=== PATIENT | female | born 1950 | race Caucasian/White ===

== ENCOUNTER → 2017-07-20 | Day surgery (SDC) | payer BC ==
[~2017-07-20] MED LIST: Acetaminophen/HYDROcodone 325-5 MG Tab PO ONE; Bupivacaine 0.25% 30 ML SDV ONE; Dexamethasone 4 MG/ML SDV ONE; Glycopyrrolate 0.2 MG/ML SDV ONE; HYDROmorphone 0.5 MG/0.5 ML Syringe IVPUSH PRN; HYDROmorphone 0.5 MG/0.5 ML Syringe ONE; Lactated Ringers 0 ML ONE; Lactated Ringers 1,000 ML IV SCH; Lidocaine 1%/Sod Bicarbonate in NS 8.4% 1 ML Syringe IDERM PRN; Meperidine PF 50 MG/ML Syringe IVPUSH PRN; Midazolam 1 MG/ML 2 ML SDV ONE; Neostigmine Methylsulfate 10 MG/10 ML MDV ONE; Ondansetron 4 MG/2 ML SDV ONE; Propofol 200 MG/20 ML SDV ONE; Rocuronium 50 MG/5 ML Vial ONE; Sodium Chloride 0.9% 10 ML Syringe FLUSH PRN; ceFAZolin 1 GM Vial ONE; diphenhydrAMINE 50 MG/ML SDV IVPUSH PRN; ePHEDrine 50 MG/ML SDV ONE; fentaNYL 100 MCG/2 ML SDV IVPUSH PRN; fentaNYL 250 MCG/5 ML SDV ONE
--- NOTE | 2017-07-20 07:48 | PCM.PREANE ---
Preanesthetic Assessment - Anesthesia/Transfusion/Family Hx Anesthesia History: Prior Anesthesia Without Reaction Family History of Anesthesia Reaction: No Transfusion History: No Prior Transfusion(s) - Review of Systems General: No Symptoms, Weakness (after chemo), Fatigue Pulmonary: No Symptoms Cardiovascular: No Symptoms Gastrointestinal: No Symptoms, Abdominal Pain (all the time after chemo) Neurological: No Symptoms Other: Reports: Easy Bruising, Neck Pain (swollen from cancer) - Physical Assessment NPO Status Date: 07/19/17 NPO Status Time: 20:30 Pulse: 77 O2 Sat by Pulse Oximetry: 95 Respiratory Rate: 16 Blood Pressure: 149/84 Temperature: 97.9 F Height: 5 ft 1 in Weight: 64.546 kg ASA Class: 3 Mental Status: Alert & Oriented x3 Airway Class: Mallampati = 2 Dentition: Reports: Dentures (top ) Thyro-Mental Finger Breadths: 3 Mouth Opening Finger Breadths: 3 ROM/Head Extension: Full Lungs: Clear to Auscultation, Normal Respiratory Effort Cardiovascular: Regular Rate, Regular Rhythm - Lab Values: Laboratory Last Values MRSA (PCR) Negative 07/18/17 09:00 - Allergies Allergies/Adverse Reactions: Allergies Allergy/AdvReac Type Severity Reaction Status Date / Time pineapple Allergy Mouth Sores Verified 07/19/17 12:50 Penicillins AdvReac Numbness Verified 07/19/17 12:50 - Blood Blood Available: No - Acknowledgements Anesthesia Type Planned: General Anesthesia Pt an Appropriate Candidate for the Planned Anesthesia: Yes Alternatives and Risks of Anesthesia Discussed w Pt/Guardian: Yes Pt/Guardian Understands and Agrees with Anesthesia Plan: Yes PreAnesthesia Questionnaire HEENT History: Reports: Impaired Vision, Other (See Below) Other HEENT History: has upper denture, glasses Cardiovascular History: Reports: High Cholesterol Respiratory History: Reports: Bronchitis, Recurrent, Pneumonia, Recurrent, Other (See Below) Other Respiratory History: cough Gastrointestinal History: Reports: GERD 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: Musculoskeletal History: Reports: Other (See Below) Other Musculoskeletal History: neck spasms Neurological History: Reports: Headaches, Chronic (resolved after acupuncture), Other (See Below) Other Neuro History: cerviclagia Psychiatric History: Reports: Anxiety Endocrine/Metabolic History: Reports: Other (See Below) Other Endocrine/Metabolic History: cerviclagia Hematologic History: Reports: None Immunologic History: Reports: None Oncologic (Cancer) History: Reports: Ovarian Dermatologic History: Reports: None - Past Surgical History Head Surgeries/Procedures: Reports: None HEENT Surgical History: Reports: Tonsillectomy Cardiovascular Surgical History: Reports: None Respiratory Surgical History: Reports: None GI Surgical History: Reports: None Female Surgical History: Reports: Breast Reduction, Section, Hysterectomy, Oophorectomy, Tubal Ligation Male Surgical History: Reports: None Endocrine Surgical History: Reports: None Neurological Surgical History: Reports: None Musculoskeletal Surgical History: Reports: Other (See Below) Other Musculoskeletal Surgeries/Procedures:: foot surgery Oncologic Surgical History: Reports: None Dermatological Surgical History: Reports: None - SUBSTANCE USE Smoking Status *Q: Former Smoker Tobacco Use Within Last Twelve Months: No Second Hand Smoke Exposure: No Days Per Week of Alcohol Use: 1 (1-2 ruby per week) Recreational Drug Use History: No - HOME MEDS Home Medications: Home Meds Ca Carbonate/Vitamin D3/Vit K [Calcium + D Soft Chewable Tab] 1 tab PO DAILY 02/25 [History] Cyclobenzaprine [Flexeril] 5 mg PO BEDTIME PRN 07/19/17 [History] Escitalopram Oxalate 20 mg PO DAILY 07/19/17 [History] Gabapentin [Neurontin] 100 mg PO TID 07/19/17 [History] Omeprazole 40 mg PO DAILY 07/19/17 [History] Simvastatin 40 mg PO DAILY 07/19/17 [History] amLODIPine Besylate [Amlodipine Besylate] 5 mg PO DAILY 07/19/17 [History] Acetaminophen/HYDROcodone [[place] 325-5 MG] 1 - 2 tab PO Q6H PRN #30 tablet 07/20 [Rx] Enoxaparin Sodium [Lovenox] 40 mg SQ DAILY #14 ml 07/20/17 [Rx] - CURRENT (IN HOUSE) MEDS Current Meds: Current Medications Lactated Ringer's (Ringers, Lactated) 1,000 mls @ 125 mls/hr IV ASDIRECTED TAMIKO Stop: 07/20/17 23:00 Lidocaine/Sodium Bicarbonate (Buffered Lidocaine 1% In Ns 8.4%) 0.25 ml IDERM ONETIME PRN PRN Reason: Prior to IV Start Stop: 07/20/17 18:00 Sodium Chloride (Saline Flush) 10 ml FLUSH ASDIRECTED PRN PRN Reason: Keep Vein Open Stop: 07/20/17 18:00 Discontinued Medications Bupivacaine HCl (Marcaine 0.25%) Confirm Administered Dose 30 ml .ROUTE .STK- MED ONE Stop: 07/20/17 07:30 Cefazolin Sodium (Ancef) Confirm Administered Dose 2 gm .ROUTE .STK-MED ONE Stop: 07/20/17 07:40 Dexamethasone (Dexamethasone) Confirm Administered Dose 4 mg .ROUTE .STK-MED ONE Stop: 07/20/17 07:40 Fentanyl (Sublimaze) Confirm Administered Dose 250 mcg .ROUTE .STK-MED ONE Stop: 07/20/17 07:41 Lactated Ringer's (Ringers, Lactated) Confirm Administered Dose 1,000 mls @ as directed .ROUTE .STK-MED ONE Stop: 07/20/17 07:40 Midazolam HCl (Versed 1 Mg/Ml) Confirm Administered Dose 2 mg .ROUTE .STK-MED ONE Stop: 07/20/17 07:40 Ondansetron HCl (Zofran) Confirm Administered Dose 4 mg .ROUTE .STK-MED ONE Stop: 07/20/17 07:40 Propofol (Diprivan 20 Ml) Confirm Administered Dose 200 mg .ROUTE .STK-MED ONE Stop: 07/20/17 07:40 Rocuronium Superior (Zemuron) Confirm Administered Dose 50 mg .ROUTE .STK-MED ONE Stop: 07/20/17 07:40
--- NOTE | 2017-07-20 09:53 | PCM.POSTAN ---
POST ANESTHESIA ASSESSMENT - MENTAL STATUS Mental Status: Alert, Oriented - VITAL SIGNS Pulse Rate: 119 SaO2: 96 Resp Rate: 12 Blood Pressure: 162/82 Temperature: 36.6 C - RESPIRATORY Respiratory Status: Respiratory Rate WNL, Airway Patent, O2 Saturation Stable - CARDIOVASCULAR CV Status: Blood Pressure Stable, Elevated Pulse Rate - GASTROINTESTINAL GI Status: No Symptoms - PAIN Pain Score: 0 - POST OP HYDRATION Hydration Status: Adequate & Stable
--- NOTE | 2017-07-20 12:24 | PCM48HPAN ---
Post Anesthesia Note - EVALUATION WITHIN 48HRS OF ANESTHETIC Vital Signs in Normal Range: Yes Patient Participated in Evaluation: Yes Respiratory Function Stable: Yes Airway Patent: Yes Cardiovascular Function Stable: Yes Hydration Status Stable: Yes Pain Control Satisfactory: Yes Nausea and Vomiting Control Satisfactory: Yes
--- NOTE | 2017-07-25 06:55 | PCM.OPNOTE ---
- General Post-Op/Procedure Note Date of Surgery/Procedure: 07/20/17 Operative Procedure(s): right achilles tendon irrigation and debridement Pre Op Diagnosis: right achilles tendon pain Post-Op Diagnosis: Same Anesthesia Technique: General ET Tube, Local Primary Surgeon: Roderick Callahan Anesthesia Provider: Ngozi No Intake Nurse: Alessandra Valera EBL in mLs: 5 Complications: None Condition: Good
--- NOTE | 2017-07-25 07:33 | OR ---
DATE OF OPERATION: 07/20/2017 SURGEON: Roderick Callahan MD OPERATION PERFORMED: Right Achilles tendon irrigation and debridement. PREOPERATIVE DIAGNOSIS: Right Achilles tendon pain. POSTOPERATIVE DIAGNOSIS: Right Achilles tendon pain. ANESTHESIA: General endotracheal intubation with local. ANESTHESIA PROVIDER: Raisa Anton. FRONT MAKER: Alessandra Valera PA-C. ESTIMATED BLOOD LOSS: 5 mL. COMPLICATIONS: None. CONDITION: Stable. DESCRIPTION OF PROCEDURE: The patient was identified in the preop holding area where proper site was marked and identified by the surgeon. The patient was taken back to the operating theater where after adequate anesthesia, the patient was placed in a prone position and the pads were placed beneath her chest. All bony prominences were well padded. The patient's neck was brought into neutral position. Right lower extremity was then had a nonsterile tourniquet applied and was then sterilely prepped and draped in the usual sterile fashion. OR time-out was performed. The patient received appropriate antibiotics. At this time, right lower extremity was exsanguinated. Tourniquet was insufflated to 300 mmHg. At this time, the patient's previous incision was utilized. This was taken down to the Achilles tendon full-thickness. At this time, the Achilles tendon was identified. Deep cultures were then taken at this time. There was noted to be a tape that was wrapped around the Achilles tendon and through it in multiple areas along with FiberWire. The tape areas did show significant irritation in the skin and superficially in the clinic and preop where these areas came close to the subcutaneous tissues. At this time, this tape was removed along with any excess FiberWire as the patient's Achilles tendon showed significant healing with no signs of needing this at this time. At this time, this tape was then debrided out along with the excess FiberWire and we did debride roughly 4 cm2 of other excess scar tissue from around the Achilles tendon at this time. Once it was found to be debrided back and all the tape was resected from around the Achilles tendon, 3 L of normal saline were irrigated through the wound. A 3-0 Vicryl was used subcutaneously and 4-0 nylon was used for the skin. The patient was placed in sterile soft dressing and a Cam boot and sent to the PACU in stable condition. MMODAL /[id number] MTDD
== END | disposition home or self-care (01) ==
LOC: JD.SDS 07:23
PROVIDERS: ATTEND Orthopaedic Surgery
DX: M76.61 Achilles tendinitis, right leg (principal); I10 Essential (primary) hypertension; F41.9 Anxiety disorder, unspecified; K21.9 Gastro-esophageal reflux disease without esophagitis; Z87.891 Personal history of nicotine dependence
CPT/HCPCS: 11043; 87075; 87077; 87186; 87205; 87641; J0690; J1100; J1170; J2250; J2405; J2710; J3010; J3490; J7120; 00400; J2704

== ENCOUNTER 2017-10-26 06:28 | Day surgery (SDC) | payer BC ==
[~2017-10-26 06:28] MED LIST changes: -Acetaminophen/HYDROcodone 325-5 MG Tab PO ONE; -Bupivacaine 0.25% 30 ML SDV ONE; -Dexamethasone 4 MG/ML SDV ONE; -Glycopyrrolate 0.2 MG/ML SDV ONE; -HYDROmorphone 0.5 MG/0.5 ML Syringe IVPUSH PRN; -HYDROmorphone 0.5 MG/0.5 ML Syringe ONE; -Lactated Ringers 0 ML ONE; -Meperidine PF 50 MG/ML Syringe IVPUSH PRN; -Midazolam 1 MG/ML 2 ML SDV ONE; -Neostigmine Methylsulfate 10 MG/10 ML MDV ONE; -Ondansetron 4 MG/2 ML SDV ONE; -Propofol 200 MG/20 ML SDV ONE; -Rocuronium 50 MG/5 ML Vial ONE; -ceFAZolin 1 GM Vial ONE; -diphenhydrAMINE 50 MG/ML SDV IVPUSH PRN; -ePHEDrine 50 MG/ML SDV ONE; -fentaNYL 100 MCG/2 ML SDV IVPUSH PRN; -fentaNYL 250 MCG/5 ML SDV ONE
[2017-10-26] MEDS ORDERED: fentaNYL 100 MCG/2 ML SDV ONE (06:45)
[2017-10-26] MEDS ORDERED: Propofol 200 MG/20 ML SDV ONE ×2 (06:45→06:49)
[2017-10-26] MEDS ORDERED: Ketamine 500 mg/10 ML MDV ONE (06:45)
[2017-10-26] MEDS ORDERED: Midazolam 1 MG/ML 2 ML SDV ONE (06:45)
[2017-10-26] MEDS ORDERED: Lidocaine 1% 4 ML ONE (06:55)
[2017-10-26] MEDS ORDERED: Ondansetron 4 MG/2 ML SDV ONE (06:56)
[2017-10-26] MEDS ORDERED: Bupivacaine 0.25% 30 ML SDV ONE (07:14)
--- NOTE | 2017-10-26 07:29 | PCM.PREANE ---
Preanesthetic Assessment - Anesthesia/Transfusion/Family Hx Anesthesia History: Prior Anesthesia Without Reaction Family History of Anesthesia Reaction: No Transfusion History: No Prior Transfusion(s) - Review of Systems General: Weakness (after chemo treatments), Fatigue Pulmonary: No Symptoms Cardiovascular: No Symptoms Gastrointestinal: No Symptoms Neurological: No Symptoms Other: Reports: Easy Bruising, Neck Pain (swollen ) - Physical Assessment NPO Status Date: 10/25/17 NPO Status Time: 18:30 Pulse: 82 O2 Sat by Pulse Oximetry: 94 Respiratory Rate: 14 Blood Pressure: 148/79 Temperature: 37.1 C Vital Signs: Last Vital Signs Temp 37.1 C 10/26/17 06:30 Pulse 82 10/26/17 06:30 Resp 14 10/26/17 06:30 BP 148/79 H 10/26/17 06:30 Pulse Ox ASA Class: 3 Mental Status: Alert & Oriented x3 Airway Class: Mallampati = 2 Dentition: Reports: Dentures Thyro-Mental Finger Breadths: 3 Mouth Opening Finger Breadths: 3 ROM/Head Extension: Full Lungs: Clear to Auscultation, Normal Respiratory Effort Cardiovascular: Regular Rate, Regular Rhythm - Lab Values: Laboratory Last Values MRSA (PCR) Negative 10/25/17 12:32 - Allergies Allergies/Adverse Reactions: Allergies Allergy/AdvReac Type Severity Reaction Status Date / Time Penicillins AdvReac Numbness Verified 10/25/17 15:06 pineapple AdvReac Mouth Sores Verified 10/25/17 15:06 - Acknowledgements Anesthesia Type Planned: Regional Block (Per Dr. Callahan. Ankle block. ), MAC Pt an Appropriate Candidate for the Planned Anesthesia: Yes Alternatives and Risks of Anesthesia Discussed w Pt/Guardian: Yes Pt/Guardian Understands and Agrees with Anesthesia Plan: Yes Additional Comments: Aminata is currently receiving chemotherapy for her ovarian cancer. Dr. Callahan is aware that Aminata has a low platelet count of 59,000. He feels the procedure cannot wait and will risk further infection. Both Dr. Callahan and Aminata wish to proceed today. 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: Musculoskeletal History: Reports: Other (See Below) Other Musculoskeletal History: neck spasms Neurological History: Reports: Headaches, Chronic, Other (See Below) Other Neuro History: cerviclagia Psychiatric History: Reports: Anxiety Endocrine/Metabolic History: Reports: Other (See Below) Other Endocrine/Metabolic History: cerviclagia Hematologic History: Reports: None Immunologic History: Reports: None Oncologic (Cancer) History: Reports: Ovarian Dermatologic History: Reports: None - Past Surgical History Head Surgeries/Procedures: Reports: None HEENT Surgical History: Reports: Tonsillectomy Cardiovascular Surgical History: Reports: None Respiratory Surgical History: Reports: None GI Surgical History: Reports: None Female Surgical History: Reports: Breast Reduction, Section, Hysterectomy, Oophorectomy, Tubal Ligation Male Surgical History: Reports: None Endocrine Surgical History: Reports: None Neurological Surgical History: Reports: None Musculoskeletal Surgical History: Reports: Other (See Below) Other Musculoskeletal Surgeries/Procedures:: foot surgery Oncologic Surgical History: Reports: None Dermatological Surgical History: Reports: None - SUBSTANCE USE Smoking Status *Q: Never Smoker Recreational Drug Use History: No - HOME MEDS Home Medications: Home Meds Ca Carbonate/Vitamin D3/Vit K [Calcium + D Soft Chewable Tab] 1 tab PO DAILY 02/25 [History] Cyclobenzaprine [Flexeril] 5 mg PO BEDTIME PRN 07/19/17 [History] Gabapentin [Neurontin] 100 mg PO TID 07/19/17 [History] Omeprazole 40 mg PO DAILY 07/19/17 [History] amLODIPine Besylate [Amlodipine Besylate] 5 mg PO DAILY 07/19/17 [History] Atrac-Tain Cream 1 dose TP ASDIRECTED PRN 10/25/17 [History] Acetaminophen/HYDROcodone [[place] 325-5 MG] 1 - 2 tab PO Q6H PRN #40 tablet 10/26 [Rx] - CURRENT (IN HOUSE) MEDS Current Meds: Current Medications Lactated Ringer's (Ringers, Lactated) 1,000 mls @ 125 mls/hr IV ASDIRECTED TAMIKO Stop: 10/26/17 23:00 Lidocaine/Sodium Bicarbonate (Buffered Lidocaine 1% In Ns 8.4%) 0.25 ml IDERM ONETIME PRN PRN Reason: Prior to IV Start Stop: 10/26/17 18:00 Sodium Chloride (Saline Flush) 10 ml FLUSH ASDIRECTED PRN PRN Reason: Keep Vein Open Stop: 10/26/17 18:00 Discontinued Medications Bupivacaine HCl (Marcaine 0.25%) Confirm Administered Dose 30 ml .ROUTE .STK- MED ONE Stop: 10/26/17 07:15 Fentanyl (Sublimaze) Confirm Administered Dose 100 mcg .ROUTE .STK-MED ONE Stop: 10/26/17 06:46 Lidocaine HCl (Xylocaine-Mpf 1%) Confirm Administered Dose 4 mls @ as directed .ROUTE .STK-MED ONE Stop: 10/26/17 06:56 Ketamine HCl (Ketalar) Confirm Administered Dose 500 mg .ROUTE .STK-MED ONE Stop: 10/26/17 06:46 Midazolam HCl (Versed 1 Mg/Ml) Confirm Administered Dose 2 mg .ROUTE .STK-MED ONE Stop: 10/26/17 06:46 Ondansetron HCl (Zofran) Confirm Administered Dose 4 mg .ROUTE .STK-MED ONE Stop: 10/26/17 06:57 Propofol (Diprivan 20 Ml) Confirm Administered Dose 200 mg .ROUTE .STK-MED ONE Stop: 10/26/17 06:46 Propofol (Diprivan 20 Ml) Confirm Administered Dose 200 mg .ROUTE .STK-MED ONE Stop: 10/26/17 06:50
[2017-10-26] MEDS ORDERED: ceFAZolin 1 GM Vial ONE (07:47)
--- NOTE | 2017-10-26 08:38 | PCM48HPAN ---
Post Anesthesia Note - EVALUATION WITHIN 48HRS OF ANESTHETIC Vital Signs in Normal Range: Yes Patient Participated in Evaluation: Yes Respiratory Function Stable: Yes Airway Patent: Yes Cardiovascular Function Stable: Yes Hydration Status Stable: Yes Pain Control Satisfactory: Yes Nausea and Vomiting Control Satisfactory: Yes Mental Status Recovered: Yes
[2017-10-26] MEDS ORDERED: Acetaminophen/HYDROcodone 325-5 MG Tab PO ONE (09:46)
--- NOTE | 2017-11-01 09:25 | PCM.OPNOTE ---
- General Post-Op/Procedure Note Date of Surgery/Procedure: 10/26/17 Operative Procedure(s): irrigation and debridement of right achilles 4 cm with application of wound vac Pre Op Diagnosis: infection of achilles region Post-Op Diagnosis: Same Anesthesia Technique: Local, MAC Primary Surgeon: Roderick Callahan Anesthesia Provider: Ngozi No Pick Up Worker: Alessandra Valera EBL in mLs: 10 Complications: None Condition: Good
--- NOTE | 2017-11-01 09:51 | OR ---
DATE OF OPERATION: 10/26/2017 SURGEON: Roderick Callahan MD OPERATION PERFORMED: Irrigation and debridement, right Achilles wound 4 cm with application of wound VAC. PREOPERATIVE DIAGNOSIS: Infection of Achilles region. POSTOPERATIVE DIAGNOSIS: Infection of Achilles region. ANESTHESIA: Local with MAC. ANESTHESIA PROVIDER: Beverly Anton. AUTOMOBILE SEAT COVER INSTALLER: Alessandra Valera PA-C ESTIMATED BLOOD LOSS: 10 mL. COMPLICATIONS: None. CONDITION: Stable. DESCRIPTION OF PROCEDURE: The patient was identified in the preoperative holding area. Proper site was marked and identified by the surgeon. The patient was taken back to the operating theater, where after adequate anesthesia, the patient's right lower extremity was sterilely prepped and draped in the usual sterile fashion using Betadine prep. At this time, OR time-out was performed. The patient did not receive antibiotics until after cultures were taken. At this time, there was noted to be an open area of the distal portion of the incision and midportion of previous incision from her Achilles tendon repair and then irrigation and debridement from previous. At this time, 15 blade was used to open this up down to the Achilles tendon. There was noted to be a large third space region in this region but there was no ernestina purulence, but there was a lot fluid. At this time, cultures were taken of both tissue and swabs for anaerobic and aerobic cultures at this time. The 4 square centimeter was debrided with the use of a curette and a rongeur of all devitalized tissue. The skin was also debrided at this time near the open areas of drainage. Once this was completed, 6 L of normal saline was irrigated through the wound. A 3-0 nylon simple suture was used for closure of the skin. At this time, a wound VAC was then applied to the incisional region for an incisional VAC noted to the Achilles region. At this time, the patient had a sterile soft dressing applied and was sent to PACU in stable condition. The patient tolerated the procedure well and will follow up with physical therapy for wound treatment. DONNA /[id number]
== END 2017-10-26 10:30 | disposition home or self-care (01) ==
LOC: JD.SDS 06:28
PROVIDERS: ATTEND Orthopaedic Surgery
DX: T81.4XXA Infection following a procedure, initial encounter (principal); M65.18 Other infective (teno)synovitis, other site; I10 Essential (primary) hypertension; E78.00 Pure hypercholesterolemia, unspecified; F41.9 Anxiety disorder, unspecified; K21.9 Gastro-esophageal reflux disease without esophagitis; Z87.891 Personal history of nicotine dependence; Z88.0 Allergy status to penicillin; Z91.018 Allergy to other foods; Z79.899 Other long term (current) drug therapy
CPT/HCPCS: 11043; 87075; 87076; 87077; 87181; 87184; 87186; 87205; 87641; A9270; J0690; J2250; J2405; J2704; J3010; J3490; J7120; 01480; J2001

== ENCOUNTER 2017-12-14 09:55 | Day surgery (SDC) | payer BC ==
[~2017-12-14 09:55] MED LIST changes: +Lidocaine 1% 4 ML ONE; +Midazolam 1 MG/ML 2 ML SDV ONE; +Propofol 200 MG/20 ML SDV ONE; +ceFAZolin 1 GM Vial ONE; +ePHEDrine/Normal Saline 25 MG/5 ML Syringe ONE; +fentaNYL 100 MCG/2 ML SDV ONE
--- NOTE | 2017-12-14 11:19 | PCM.PREANE ---
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 - Review of Systems General: No Symptoms Pulmonary: Cough (patient denies acute bronchitis just a chronic dry cough ) Cardiovascular: Other (HTN, Hyperlipidemia) Gastrointestinal: Other (GERD) Neurological: Headache Other: Reports: Depression, Anxiety - Physical Assessment NPO Status Date: 12/13/17 NPO Status Time: 19:00 O2 Sat by Pulse Oximetry: 98 Respiratory Rate: 16 Vital Signs: Last Vital Signs Temp 36.2 C 12/14/17 10:05 Pulse 58 L 12/14/17 10:05 Resp 16 12/14/17 10:05 BP 183/82 H 12/14/17 10:05 Pulse Ox 98 12/14/17 10:05 Height: 1.55 m Weight: 58.06 kg ASA Class: 3 Mental Status: Alert & Oriented x3 Airway Class: Mallampati = 3 Dentition: Reports: Dentures (upper ), Implants (lower teeth ) Thyro-Mental Finger Breadths: 3 ROM/Head Extension: Full Lungs: Clear to Auscultation, Normal Respiratory Effort Cardiovascular: Regular Rate, Regular Rhythm - Lab Values: Laboratory Last Values MRSA (PCR) Negative 12/12/17 12:46 - Allergies Allergies/Adverse Reactions: Allergies Allergy/AdvReac Type Severity Reaction Status Date / Time Penicillins AdvReac Numbness Verified 12/13/17 14:02 pineapple AdvReac Mouth Sores Verified 12/13/17 14:02 - Blood Blood Available: No Product(s) Available: None - Anesthesia Plan Pre-Op Medication Ordered: None Beta Carla: Carvedilol Med Last Dose Date: 12/13/17 Med Last Dose Time: 07:00 - Acknowledgements Anesthesia Type Planned: MAC Pt an Appropriate Candidate for the Planned Anesthesia: Yes Alternatives and Risks of Anesthesia Discussed w Pt/Guardian: Yes Pt/Guardian Understands and Agrees with Anesthesia Plan: Yes PreAnesthesia Questionnaire HEENT History: Reports: Impaired Vision, Other (See Below) Other HEENT History: has upper denture, glasses Cardiovascular History: Reports: High Cholesterol, Hypertension Respiratory History: Reports: Bronchitis, Recurrent, Pneumonia, Recurrent, Other (See Below) Other Respiratory History: cough Gastrointestinal History: Reports: GERD Genitourinary History: Reports: UTI, Recurrent 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: Musculoskeletal History: Reports: Other (See Below) Other Musculoskeletal History: neck spasms Neurological History: Reports: Headaches, Chronic, Other (See Below) Other Neuro History: cerviclagia Psychiatric History: Reports: None, Anxiety Endocrine/Metabolic History: Reports: Other (See Below) Other Endocrine/Metabolic History: cerviclagia Hematologic History: Reports: None Immunologic History: Reports: None Oncologic (Cancer) History: Reports: Ovarian Dermatologic History: Reports: None - Past Surgical History Head Surgeries/Procedures: Reports: None HEENT Surgical History: Reports: Tonsillectomy Cardiovascular Surgical History: Reports: None Respiratory Surgical History: Reports: None GI Surgical History: Reports: None, Colonoscopy Female Surgical History: Reports: Breast Implant, Breast Reduction, Section, Hysterectomy, Oophorectomy, Tubal Ligation Male Surgical History: Reports: None Endocrine Surgical History: Reports: None Neurological Surgical History: Reports: None Musculoskeletal Surgical History: Reports: Other (See Below) Other Musculoskeletal Surgeries/Procedures:: foot surgery Oncologic Surgical History: Reports: None Dermatological Surgical History: Reports: None - SUBSTANCE USE Smoking Status *Q: Former Smoker Recreational Drug Use History: No - HOME MEDS Home Medications: Home Meds Gabapentin [Neurontin] 100 mg PO TID 07/19/17 [History] Omeprazole 40 mg PO DAILY 07/19/17 [History] amLODIPine Besylate [Amlodipine Besylate] 5 mg PO DAILY 07/19/17 [History] Escitalopram Oxalate 20 mg PO DAILY 12/13/17 [History] Zinc 50 mg PO DAILY 12/13/17 [History] Acetaminophen/HYDROcodone [[place] 325-5 MG] 1 - 2 tab PO Q6H PRN #30 tablet 12/14 [Rx] Aspirin 325 mg PO DAILY #40 tab 12/14/17 [Rx] - CURRENT (IN HOUSE) MEDS Current Meds: Current Medications Lactated Ringer's (Ringers, Lactated) 1,000 mls @ 125 mls/hr IV ASDIRECTED TMAIKO Stop: 12/14/17 23:00 Last Admin: 12/14/17 10:25 Dose: 125 mls/hr Lidocaine/Sodium Bicarbonate (Buffered Lidocaine 1% In Ns 8.4%) 0.25 ml IDERM ONETIME PRN PRN Reason: Prior to IV Start Stop: 12/14/17 18:00 Last Admin: 12/14/17 10:25 Dose: 0.25 ml Sodium Chloride (Saline Flush) 10 ml FLUSH ASDIRECTED PRN PRN Reason: Keep Vein Open Stop: 12/14/17 18:00 Discontinued Medications Bupivacaine HCl (Sensorcaine-Mpf 0.25%) Confirm Administered Dose 20 ml .ROUTE .STK-MED ONE Stop: 12/14/17 10:50 Cefazolin Sodium (Ancef) Confirm Administered Dose 2 gm .ROUTE .STK-MED ONE Stop: 12/14/17 09:11 Ephedrine Sulfate (Ephedrine In Ns) Confirm Administered Dose 25 mg .ROUTE .STK- MED ONE Stop: 12/14/17 09:20 Fentanyl (Sublimaze) Confirm Administered Dose 100 mcg .ROUTE .STK-MED ONE Stop: 12/14/17 09:09 Lidocaine HCl (Xylocaine-Mpf 1%) Confirm Administered Dose 4 mls @ as directed .ROUTE .STK-MED ONE Stop: 12/14/17 09:09 Lidocaine HCl (Xylocaine 1%) Confirm Administered Dose 50 ml .ROUTE .STK-MED ONE Stop: 12/14/17 10:50 Midazolam HCl (Versed 1 Mg/Ml) Confirm Administered Dose 2 mg .ROUTE .STK-MED ONE Stop: 12/14/17 09:10 Propofol (Diprivan 20 Ml) Confirm Administered Dose 200 mg .ROUTE .STK-MED ONE Stop: 12/14/17 09:09
[2017-12-14] MEDS: Bupivacaine 0.25% 10 ML SDV ONE ×2 (11:29→11:56)
[2017-12-14] MEDS: Lidocaine 1% 50 ML MDV ONE ×2 (11:29→11:56)
--- NOTE | 2017-12-14 12:28 | PCM48HPAN ---
Post Anesthesia Note - EVALUATION WITHIN 48HRS OF ANESTHETIC Vital Signs in Normal Range: Yes Patient Participated in Evaluation: Yes Respiratory Function Stable: Yes Airway Patent: Yes Cardiovascular Function Stable: Yes Hydration Status Stable: Yes Pain Control Satisfactory: Yes Nausea and Vomiting Control Satisfactory: Yes Mental Status Recovered: Yes Pulse Rate: 62 SaO2: 93 Resp Rate: 16 Temperature: 97.4 F Blood Pressure: 177/74
[2017-12-14] MEDS ORDERED: Acetaminophen/HYDROcodone 325-5 MG Tab PO SCH (13:17)
--- NOTE | 2017-12-21 06:51 | PCM.OPNOTE ---
- General Post-Op/Procedure Note Date of Surgery/Procedure: 12/14/17 Operative Procedure(s): irrigation and debridement or right achilles tendon wound Pre Op Diagnosis: right achilles tendon wound Post-Op Diagnosis: Same Anesthesia Technique: Local, MAC Primary Surgeon: Roderick Callahan Anesthesia Provider: Sherry HUDDLESTON in mLs: 5 Complications: None Condition: Good
--- NOTE | 2017-12-25 07:54 | OR ---
DATE OF OPERATION: 12/14/2017 SURGEON: Roderick Callahan MD OPERATION PERFORMED: Irrigation and debridement of right Achilles tendon wound. PREOPERATIVE DIAGNOSIS: Right Achilles tendon wound. POSTOPERATIVE DIAGNOSIS: Right Achilles tendon wound. ANESTHESIA: Local MAC. ANESTHESIA PROVIDER: Sherry White CRNA. ANIMAL LABORATORY HELPER: None. ESTIMATED BLOOD LOSS: 5 mL. COMPLICATIONS: None. CONDITION: Stable. DESCRIPTION OF PROCEDURE: The patient was identified in the preop holding area where proper site was marked and identified by the surgeon. The patient was taken back to the operating theater where after adequate anesthesia, the patient's right lower extremity was sterilely prepped and draped in the usual sterile fashion. OR time-out was performed. The patient received 2 g of IV Ancef. Right lower extremity was then anesthetized using 0.25% Marcaine without epinephrine and 1% lidocaine without epinephrine around the wound. The 1.5 cm x 5 mm wound was then debrided using curette. There was no significant tunneling noted. At this time, a liter of saline was irrigated through the wound and then nylon horizontal mattress sutures were used for closure of the wound and then simple sutures over the top making sure it was watertight. At this time, it was found to be adequately closed with no signs of infection, and an incisional VAC was placed over the top at this time. The patient at this time tolerated the procedure well and was sent to the PACU in stable condition. MMODAL /[id number]
== END 2017-12-14 14:30 | disposition home or self-care (01) ==
LOC: JD.SDS 09:55
PROVIDERS: ATTEND Orthopaedic Surgery
DX: S86.091A Other specified injury of right Achilles tendon, initial encounter (principal); T81.89XA Other complications of procedures, not elsewhere classified, initial encounter; I10 Essential (primary) hypertension; E78.5 Hyperlipidemia, unspecified; J20.9 Acute bronchitis, unspecified; F41.9 Anxiety disorder, unspecified; K21.9 Gastro-esophageal reflux disease without esophagitis; F32.9 Major depressive disorder, single episode, unspecified; Z87.891 Personal history of nicotine dependence; Z79.82 Long term (current) use of aspirin; Z79.899 Other long term (current) drug therapy; Z88.0 Allergy status to penicillin; Z91.018 Allergy to other foods; X58.XXXA Exposure to other specified factors, initial encounter
CPT/HCPCS: 11043; 87641; A9270; J0690; J2250; J2704; J3010; J3490; J7050; J7120; 01470; J2001

== ENCOUNTER 2018-06-29 11:02 | Emergency (ER) | payer BC ==
[2018-06-29] MEDS ORDERED: Sodium Chloride 0.9% 10 ML Syringe FLUSH PRN (11:38)
--- NOTE | 2018-06-29 12:33 | EDM.PDOC ---
ED HPI GENERAL MEDICAL PROBLEM - General Chief Complaint: Abdominal Pain Stated Complaint: FLUID BUILD UP CANCER PT Time Seen by Provider: 06/29/18 11:08 Source of Information: Reports: Patient, RN Notes Reviewed - History of Present Illness INITIAL COMMENTS - FREE TEXT/NARRATIVE: 68-year-old female comes in with worsening abdominal distention, shortness of breath. She does have history of ovarian cancer first diagnosed many years ago and then became recurrent about 3 years ago. She has been receiving chemotherapy of various types are the last 3 or 4 years and currently receiving her therapy at cancer Center [facility] [place]. She has been going there once a month for evaluation and treatment. She did first need abdominal paracentesis the end of April about 2 months ago and then had a second or centesis done just a couple of weeks ago prior to coming back home. Now she feels like the fluid is building back up again about as bad as it was 2 weeks ago. Any more short of breath, especially when walking. No chest pain at this time. No major abdominal discomfort. She's been eating and drinking satisfactorily. No recent fever or chills. Abdominal Pain Score (Numeric/FACES): 5 - Related Data Allergies Allergy/AdvReac Type Severity Reaction Status Date / Time Penicillins AdvReac Numbness Verified 06/29/18 11:10 pineapple AdvReac Mouth Sores Verified 06/29/18 11:10 Home Meds: Home Meds Gabapentin [Neurontin] 100 mg PO TID 07/19/17 [History] Omeprazole 40 mg PO DAILY 07/19/17 [History] amLODIPine Besylate [Amlodipine Besylate] 10 mg PO DAILY 07/19/17 [History] Escitalopram Oxalate 20 mg PO DAILY 12/13/17 [History] Zinc 30 mg PO DAILY 12/13/17 [History] Acetaminophen [Non-Aspirin Extra Strength] 1 tab PO ASDIRECTED 03/12/18 [History ] Calcium Carbonate/Vitamin D3 [Calcium 600-Vit D3 800 Tab] 2 tab PO BID 03/12/18 [History] Dexamethasone 4 mg PO ASDIRECTED PRN 03/12/18 [History] Docusate Sodium [Colace] 100 mg PO DAILY PRN 03/12/18 [History] Fexofenadine [Kayleigh] 180 mg PO DAILY 03/12/18 [History] Ondansetron [Zofran ODT] 4 mg PO Q6H PRN #15 tab.dis 03/12/18 [Rx] Pantoprazole [ProTONIX] 40 mg PO DAILY 03/12/18 [History] Ubidecarenone [COQ-10] 100 mg PO DAILY 03/12/18 [History] Vitamin B Complex [B Complex] 2 tab PO DAILY 03/12/18 [History] cloNIDine [Catapres] 0.2 mg TOP ASDIRECTED 06/29/18 [History] Past Medical History HEENT History: Reports: Impaired Vision, Other (See Below) Other HEENT History: has upper denture, glasses Cardiovascular History: Reports: High Cholesterol, Hypertension Respiratory History: Reports: Bronchitis, Recurrent, Pneumonia, Recurrent, Other (See Below) Other Respiratory History: cough Gastrointestinal History: Reports: GERD Genitourinary History: Reports: UTI, Recurrent DIRECTOR OF OUTSIDE SALES History: Reports: Other DIRECTOR OF [employer] SALES History: ovarian cancer Musculoskeletal History: Reports: Other (See Below) Other Musculoskeletal History: neck spasms Neurological History: Reports: Headaches, Chronic, Other (See Below) Other Neuro History: cerviclagia Psychiatric History: Reports: None, Anxiety Endocrine/Metabolic History: Reports: Other (See Below) Other Endocrine/Metabolic History: cerviclagia Hematologic History: Reports: None Immunologic History: Reports: None Oncologic (Cancer) History: Reports: Ovarian Dermatologic History: Reports: None - Past Surgical History Head Surgeries/Procedures: Reports: None HEENT Surgical History: Reports: Tonsillectomy Cardiovascular Surgical History: Reports: None Respiratory Surgical History: Reports: None GI Surgical History: Reports: None, Colonoscopy Female Surgical History: Reports: Breast Implant, Breast Reduction, Section, Hysterectomy, Oophorectomy, Tubal Ligation Endocrine Surgical History: Reports: None Neurological Surgical History: Reports: None Musculoskeletal Surgical History: Reports: Other (See Below) Other Musculoskeletal Surgeries/Procedures:: foot surgery Oncologic Surgical History: Reports: None Dermatological Surgical History: Reports: None Social & Family History - Family History Family Medical History: Noncontributory - Tobacco Use Smoking Status *Q: Never Smoker - Caffeine Use Caffeine Use: Reports: Coffee - Recreational Drug Use Recreational Drug Use: No ED ROS GENERAL - Review of Systems Review Of Systems: See Below Constitutional: Denies: Fever, Chills HEENT: Reports: No Symptoms Respiratory: Reports: Shortness of Breath. Denies: Cough Cardiovascular: Denies: Chest Pain Endocrine: Reports: Fatigue GI/Abdominal: Reports: Other (Worsening abdominal distention). Denies: Abdominal Pain, Nausea, Vomiting Neurological: Reports: No Symptoms ED EXAM, GI/ABD - Physical Exam Exam: See Below General Appearance: Alert, No Apparent Distress Throat/Mouth: Normal Inspection Neck: Supple Respiratory/Chest: No Respiratory Distress, Lungs Clear, Normal Breath Sounds Cardiovascular: Regular Rate, Rhythm GI/Abdominal Exam: Distended (Moderate, compatible with ascites). No: Guarding , Tender Extremities: Pedal Edema. No: Leg Pain, Increased Warmth, Redness Neurological: Alert, Oriented, No Motor/Sensory Deficits Skin Exam: Warm, Dry, Normal Color Course - Vital Signs Last Recorded V/S: Last Vital Signs Temp 97.8 F 06/29/18 11:07 Pulse 88 06/29/18 11:07 Resp 16 06/29/18 11:07 BP 171/91 H 06/29/18 11:07 Pulse Ox 88 L 06/29/18 11:07 - Orders/Labs/Meds Orders: Active Orders 24 hr Category Date Time Status Peripheral IV Care [RC] . DIRECTED Care 06/29/18 11:39 Active CULTURE BODY FLUID + SMEAR [RM] Stat Lab 06/29/18 14:00 Ordered Peripheral IV Insertion Adult [OM.PC] Stat Oth 06/29/18 11:39 Ordered Labs: Laboratory Tests 06/29/18 06/29/18 06/29/18 Range/Units 11:50 11:50 14:00 WBC 4.34 (3.98-10.04) K/mm3 RBC 3.01 L (3.98-5.22) M/mm3 Hgb 8.8 L (11.2-15.7) gm/L Hct 29.0 L (34.1-44.9) % MCV 96.3 H (79.4-94.8) fl MCH 29.2 (25.6-32.2) pg MCHC 30.3 L (32.2-35.5) g/dl RDW Std Deviation 64.0 H (36.4-46.3) fL Plt Count 150 L (182-369) K/mm3 MPV 9.3 L (9.4-12.3) fl Neut % (Auto) 83.0 H (34.0-71.1) % Lymph % (Auto) 6.9 L (19.3-51.7) % Sutton % (Auto) 7.1 (4.7-12.5) % Eos % (Auto) 2.5 (0.7-5.8) Baso % (Auto) 0.5 (0.1-1.2) % Neut # (Auto) 3.60 (1.56-6.13) K/mm3 Lymph # (Auto) 0.30 L (1.18-3.74) K/mm3 Sutton # (Auto) 0.31 (0.24-0.36) K/mm3 Eos # (Auto) 0.11 (0.04-0.36) K/mm3 Baso # (Auto) 0.02 (0.01-0.08) K/mm3 Manual Slide Review Abnormal smear Sodium 141 (136-145) mEq/L Potassium 3.5 (3.5-5.1) mEq/L Chloride 108 H (98-107) mEq/L Carbon Dioxide 23 (21-32) mEq/L Anion Gap 13.5 (5-15) BUN 28 H (7-18) mg/dL Creatinine 2.0 H (0.55-1.02) mg/dL Est Cr Clr Drug Dosing 19.75 mL/min Estimated GFR (MDRD) 25 (>60) mL/min BUN/Creatinine Ratio 14.0 (14-18) Glucose 94 (80-115) mg/dL Calcium 9.0 (8.5-10.1) mg/dL Total Bilirubin 0.5 (0.2-1.0) mg/dL AST 22 (15-37) U/L ALT 14 (14-59) U/L Alkaline Phosphatase 87 (46-116) U/L Total Protein 6.1 L (6.4-8.2) g/dl Albumin 3.0 L (3.4-5.0) g/dl Globulin 3.1 gm/dL Albumin/Globulin Ratio 1.0 (1-2) Body Fluid Site Abdomen aspirate Fluid Type Peritoneal fluid Fluid Volume 18 ML Fluid Color Red Fluid Appearance Bloody Fluid WBC 0.18 L (0.20-0.60) k/mm*3 Fluid RBC 0.348 H (0.00-0.010) 10*6/uL Fluid Diff Comment Not Reportable Fluid Seg Neutrophils 7.0 (0-25) % Fluid Lymphocytes 1.0 (0-78) % Fluid Monocytes 14.0 (0-71) % Fl Polymorphonucl Cell Not Reportable Fld Meso/Macro/Monocyte 78 Fluid LDH 130 U/L Meds: Medications Discontinued Medications Generic Name Dose Route Start Last Admin Trade Name Freq PRN Reason Stop Dose Admin Sodium Chloride 10 ml 06/29/18 11:38 06/29/18 11:59 Saline Flush FLUSH 10 ml ASDIRECTED PRN Administration Keep Vein Open - Re-Assessments/Exams Free Text/Narrative Re-Assessment/Exam: 06/29/18 15:38 I discussed with our surgeon aws solution architect, she can do the tap but does not do US guided paracentisis. I have talked to Dr Hernández, General Surgeon [facility] who did willingly and kindly come in and tapped off about 3 Liters of fluid. Departure - Departure Time of Disposition: 14:38 Disposition: Home, Self-Care 01 Condition: Fair Clinical Impression: Ascites Qualifiers: Ascites type: other type Qualified Code(s): R18.8 - Other ascites - Discharge Information Instructions: Ascites Referrals: Pearl Colón MD [Primary Care Provider] - Forms: ED Department Discharge Additional Instructions: Continue current medications, follow-up cancer Center in 1-2 weeks as planned. Return to ED as needed if symptoms worsening in any way. - My Orders Last 24 Hours: My Active Orders 06/29/18 11:39 Peripheral IV Care [RC] . DIRECTED Peripheral IV Insertion Adult [OM.PC] Stat 06/29/18 14:00 CULTURE BODY FLUID + SMEAR [RM] Stat - Assessment/Plan Last 24 Hours: My Active Orders 06/29/18 11:39 Peripheral IV Care [RC] . DIRECTED Peripheral IV Insertion Adult [OM.PC] Stat 06/29/18 14:00 CULTURE BODY FLUID + SMEAR [RM] Stat
--- NOTE | 2018-06-29 13:28 | CR ---
Chest: Portable view of the chest was obtained. Comparison: Prior chest x-ray of 10/25/17. Small right sided pleural effusion is seen. Mild right basilar atelectasis is noted. Left lung base also show slight atelectasis. Heart size at the upper limits of normal. Tortuous thoracic aorta is seen. Infusion port seen entering from the left side. Pulmonary vessels are felt to be minimally congested. Impression: 1. Small right-sided pleural effusion with slight pulmonary vascular congestion. 2. Mild bibasilar atelectasis. 3. Other incidental findings. Diagnostic code #3
--- NOTE | 2018-06-29 14:17 | PCM.OPNOTE ---
- General Post-Op/Procedure Note Date of Surgery/Procedure: 06/29/18 Operative Procedure(s): abdominal para centhesis Findings: three litters removed blood tinged ascitic fluid Pre Op Diagnosis: malignant ascities Post-Op Diagnosis: Same Anesthesia Technique: Local Primary Surgeon: Evangelista Hernández EBL in mLs: 0 Condition: Good
--- NOTE | 2018-07-02 06:05 | PROC ---
DATE OF OPERATION: 06/29/2018 SURGEON: Evangelista Hernández MD PREOPERATIVE DIAGNOSIS: Malignant ascites. POSTOPERATIVE DIAGNOSIS: Malignant ascites. PROCEDURE: Abdominal paracentesis, 3 L, under ultrasound guidance. FINDINGS: Blood-tinged ascitic fluid. ANESTHESIA: Procedure done under local anesthetic. DESCRIPTION OF PROCEDURE: The patient was seen in the exam room in the emergency room. An ultrasound was done showing the most efficacious spot on the abdomen to perform the paracentesis. This was marked in the right lower quadrant, and this area was prepped with chlorhexidine, alcohol prep, and draped off in a sterile fashion. Skin was anesthetized with 1% Xylocaine, and a small exploratory 22-gauge needle was inserted, and a bloody tap was obtained of blood-tinged ascitic fluid. This was followed by a catheter, which was then connected to suction bottles and 3 L were removed. The catheter was removed. Pressure was placed on the area, and then the site was treated with Dermabond. A Band-Aid placed. The patient tolerated the procedure, and the specimens were sent for culture and LDH. OPERATION PERFORMED: ESTIMATED BLOOD LOSS: MMODAL /[id number]
== END 2018-06-29 14:43 | disposition home or self-care (01) ==
LOC: JD.ED 11:02
DX: R18.8 Other ascites (principal); I10 Essential (primary) hypertension; Z91.018 Allergy to other foods; Z88.0 Allergy status to penicillin; Z79.899 Other long term (current) drug therapy
CPT/HCPCS: 36415; 49083; 71045; 76942; 80053; 83615; 85025; 87070; 87205; 89050; 99285; C1729